=== PATIENT | female | born 1940 | race Caucasian/White ===

== ENCOUNTER 2019-08-08 14:32 | Inpatient (IN) ==
[2019-08-08] MEDS ORDERED: ALBUTEROL 2.5 MG/3 ML NEB RESP TX PRN (16:52)
[2019-08-08] MEDS ORDERED: ONDANSETRON 4 MG/2 ML VIAL IV PRN (16:52)
[2019-08-08] MEDS ORDERED: ACETAMINOPHEN 325 MG TABLET PO PRN (16:52)
[2019-08-08 17:23] LABS: Basophils % 0.1 % (0.0-0.8); Hemoglobin 10.6 GM/DL (12.0-16.0); Immature Granulocytes % 1.5 %; Immature Granulocytes Absolute 0.31 #; Lymphocytes # 0.5 10*3/uL (1.4-4.0); Lymphocytes % 2.6 % (21.3-54.2); Mean Corpuscular HGB Conc 32.1 GM/DL (32-36); Mean Corpuscular Volume 83.1 FL (87-102); Mean Platelet Volume 9.5 FL (9.6-12.0); Monocytes % 9.7 % (1.7-12.7); Neutrophils % 86.1 % (38.7-73.9); Platelet Count 329 T/CUMM (130-400); Red Blood Count 3.97 MC/CUMM (3.8-5.5); Red Cell Distribution Width 15.4 % (9.3-17.3); White Blood Count 20.1 T/CUMM (4-12)
[2019-08-08 17:43] LABS: Albumin 3.1 G/DL (3.4-5.0); Bilirubin,Total 0.6 MG/DL (0.2-1.0); Calcium 8.8 MG/DL (8.5-10.1); Total Protein 7.6 G/DL (6.4-8.3)
[2019-08-08 17:53] LABS: Lymphocytes 2 % (20-55); Segmented Neutrophils 94 % (50-85); Total Cells Counted 100
[2019-08-08 17:54] LABS: Anisocytosis Slight; Microcytosis Slight; Platelet Estimate Normal
[2019-08-08] MEDS ORDERED: MAGNESIUM SULF RIDER 2 GM in PREMIX 1 EACH IV PRN (18:03)
[2019-08-08] MEDS ORDERED: POTASSIUM CHLORIDE 20 MEQ TABLET PO ONE (18:03)
[2019-08-08] MEDS ORDERED: MAGNESIUM SULF RIDER 4 GM in PREMIX 1 EACH IV PRN (18:03)
[2019-08-08] MEDS ORDERED: GLUCAGON 1 MG VIAL IM PRN (18:24)
[2019-08-08] MEDS ORDERED: DEXTROSE 10% 250 ML BAG IV PRN (18:24)
[2019-08-08] MEDS: MEROPENEM 500 MG in SODIUM CHLORIDE 0.9% 100 ML IV SCH (18:40)
[2019-08-08] MEDS: ALBUTEROL/IPRATROPIUM 3 ML NEB RESP TX SCH (20:19)
[2019-08-08] MEDS: INSULIN LISPRO 100 UNIT/ML SUBCUT SCH (20:32)
[2019-08-08] MEDS: NORTRIPTYLINE 25 MG CAPSULE PO SCH (21:47)
[2019-08-08] MEDS: DULoxetine 30 MG CAPSULE PO SCH (21:49)
[2019-08-08] MEDS: MAGNESIUM CHLORIDE 64 MG TABLET PO SCH (21:49)
[2019-08-08 23:23] LABS: Apearance,Urine CLEAR (Clear); Bacteria,Urine Occasional /HPF (Few); Bilirubin,Urine Negative (Negative); Blood, Urine Negative (Negative); Glucose,Urine (UA) Negative (Negative); Ketones,Urine Negative (Negative); Mucus,Urine Occasional /LPF (Occasional); Nitrite,Urine Negative (Negative); Protein,Urine 30 MG/DL; RBC,Urine 1 /HPF (0-4); Squamous Epithelial Cell,Urine Occasional /HPF (0-10); Urine Color Straw (Yellow); Urine Specific Gravity 1.011 (1.001-1.035); Urine Urobilinogen < 2.0 EU/DL (0.2-1.0); WBC,Urine <1 /HPF (0-6)
[2019-08-08] MEDS: VANCOMYCIN INJ 1,500 MG in SODIUM CHLORIDE 0.9% 500 ML IV SCH (23:49)
[2019-08-09] MEDS: ALBUTEROL/IPRATROPIUM 3 ML NEB RESP TX SCH ×7 (00:30→23:05)
[2019-08-09] MEDS: MEROPENEM 500 MG in SODIUM CHLORIDE 0.9% 100 ML IV SCH ×4 (03:09→20:47)
[2019-08-09 04:29] LABS: Basophils % 0.1 % (0.0-0.8); Hematocrit 31.4 VOL% (35.7-47.0); Immature Granulocytes % 1.5 %; Immature Granulocytes Absolute 0.33 #; Lymphocytes # 1.1 10*3/uL (1.4-4.0); Mean Corpuscular HGB Conc 31.8 GM/DL (32-36); Mean Corpuscular Volume 84.4 FL (87-102); Mean Platelet Volume 9.7 FL (9.6-12.0); Monocytes % 14.3 % (1.7-12.7); Neutrophils % 79.1 % (38.7-73.9); Platelet Count 320 T/CUMM (130-400); Red Blood Count 3.72 MC/CUMM (3.8-5.5); Red Cell Distribution Width 15.4 % (9.3-17.3); White Blood Count 22.4 T/CUMM (4-12)
[2019-08-09 04:53] LABS: Band Neutrophils 2 % (0-10); Lymphocytes 6 % (20-55); Platelet Estimate Normal; Segmented Neutrophils 79 % (50-85); Total Cells Counted 100
[2019-08-09 05:03] LABS: Albumin 2.7 G/DL (3.4-5.0); Bilirubin,Total 0.7 MG/DL (0.2-1.0); Calcium 8.3 MG/DL (8.5-10.1); Osmolality,Calculated 281.5 MOS/KG (273-304); Thyroid Stimulating Hormone 0.464 uIU/ml (0.358-3.74); Total Protein 6.7 G/DL (6.4-8.3)
[2019-08-09] MEDS: MAGNESIUM CHLORIDE 64 MG TABLET PO SCH ×2 (08:41→20:45)
[2019-08-09] MEDS: POTASSIUM CHLORIDE 20 MEQ TABLET PO SCH (08:42)
[2019-08-09] MEDS: ATORVASTATIN 10 MG TABLET PO SCH (08:42)
[2019-08-09] MEDS: amLODIPine 10 MG TABLET PO SCH (08:43)
[2019-08-09] MEDS: methylPREDNISolone SOD SUC 40 MG/1 ML VIAL IV SCH ×3 (08:44→20:45)
[2019-08-09] MEDS: FUROSEMIDE 40 MG/4 ML VIAL IV SCH (08:46)
[2019-08-09] MEDS: INSULIN LISPRO 100 UNIT/ML SUBCUT SCH ×4 (08:53→20:47)
[2019-08-09] MEDS ORDERED: Vitamin E 100 UNIT PO SCH (09:00)
[2019-08-09] MEDS ORDERED: FUROSEMIDE 40 MG TABLET PO SCH (09:00)
[2019-08-09] MEDS ORDERED: POTASSIUM CHLORIDE 20 MEQ TABLET PO PRN (09:00)
[2019-08-09] MEDS: POTASSIUM CHLORIDE 20 MEQ TABLET PO PRN (11:29)
[2019-08-09] MEDS: VANCOMYCIN INJ 1,500 MG in SODIUM CHLORIDE 0.9% 500 ML IV SCH ×2 (11:29→23:47)
[2019-08-09] MEDS: DULoxetine 30 MG CAPSULE PO SCH (20:44)
[2019-08-09] MEDS: NORTRIPTYLINE 25 MG CAPSULE PO SCH (20:44)
[2019-08-09] MEDS: ENOXAPARIN 40 MG/0.4 ML SYRINGE SUBCUT SCH (20:48)
[2019-08-10] MEDS: methylPREDNISolone SOD SUC 40 MG/1 ML VIAL IV SCH ×4 (02:29→19:36)
[2019-08-10] MEDS: MEROPENEM 500 MG in SODIUM CHLORIDE 0.9% 100 ML IV SCH ×4 (02:33→20:02)
[2019-08-10] MEDS: ALBUTEROL/IPRATROPIUM 3 ML NEB RESP TX SCH ×6 (03:17→22:59)
[2019-08-10] MEDS: MORPHINE 4 MG/1 ML VIAL IV PRN ×3 (03:35→13:12)
[2019-08-10 04:22] LABS: Basophils % 0.2 % (0.0-0.8); Hematocrit 33.2 VOL% (35.7-47.0); Hemoglobin 10.7 GM/DL (12.0-16.0); Immature Granulocytes % 1.4 %; Immature Granulocytes Absolute 0.31 #; Lymphocytes # 0.7 10*3/uL (1.4-4.0); Lymphocytes % 3.2 % (21.3-54.2); Mean Corpuscular HGB Conc 32.2 GM/DL (32-36); Mean Corpuscular Volume 83.2 FL (87-102); Mean Platelet Volume 9.8 FL (9.6-12.0); Monocytes % 6.7 % (1.7-12.7); Neutrophils % 88.5 % (38.7-73.9); Platelet Count 307 T/CUMM (130-400); Red Blood Count 3.99 MC/CUMM (3.8-5.5); Red Cell Distribution Width 15.3 % (9.3-17.3); White Blood Count 22.6 T/CUMM (4-12)
[2019-08-10 04:39] LABS: Albumin 2.6 G/DL (3.4-5.0); Calcium 8.2 MG/DL (8.5-10.1); Osmolality,Calculated 272.1 MOS/KG (273-304); Total Protein 7.2 G/DL (6.4-8.3)
[2019-08-10 04:44] LABS: Band Neutrophils 1 % (0-10); Lymphocytes 1 % (20-55); Segmented Neutrophils 88 % (50-85); Total Cells Counted 100
[2019-08-10 04:45] LABS: Hypochromasia 1+; Platelet Estimate Adequate
[2019-08-10] MEDS: POTASSIUM CHLORIDE 20 MEQ TABLET PO SCH (08:22)
[2019-08-10] MEDS: ATORVASTATIN 10 MG TABLET PO SCH (08:24)
[2019-08-10] MEDS: amLODIPine 10 MG TABLET PO SCH (08:24)
[2019-08-10] MEDS: FUROSEMIDE 40 MG/4 ML VIAL IV SCH (08:24)
[2019-08-10] MEDS: MAGNESIUM CHLORIDE 64 MG TABLET PO SCH ×2 (08:24→20:01)
[2019-08-10] MEDS: INSULIN LISPRO 100 UNIT/ML SUBCUT SCH ×4 (09:07→20:01)
[2019-08-10] MEDS ORDERED: MYLANTA/LIDO VISC/NYST 180 ML BOTTLE SWISH/SWAL PRN (10:01)
[2019-08-10] MEDS: VANCOMYCIN INJ 1,500 MG in SODIUM CHLORIDE 0.9% 500 ML IV SCH ×2 (13:14→23:17)
[2019-08-10] MEDS: MYLANTA/LIDO VISC/NYST 180 ML BOTTLE SWISH/SWAL SCH ×2 (18:00→20:05)
[2019-08-10] MEDS: ENOXAPARIN 40 MG/0.4 ML SYRINGE SUBCUT SCH (19:36)
[2019-08-10] MEDS: NORTRIPTYLINE 25 MG CAPSULE PO SCH (20:01)
[2019-08-10] MEDS: DULoxetine 30 MG CAPSULE PO SCH (20:01)
[2019-08-11] MEDS: MORPHINE 4 MG/1 ML VIAL IV PRN (00:02)
[2019-08-11] MEDS: MEROPENEM 500 MG in SODIUM CHLORIDE 0.9% 100 ML IV SCH ×4 (02:04→21:02)
[2019-08-11] MEDS: methylPREDNISolone SOD SUC 40 MG/1 ML VIAL IV SCH ×4 (02:04→21:02)
[2019-08-11] MEDS: ALBUTEROL/IPRATROPIUM 3 ML NEB RESP TX SCH ×6 (02:33→23:17)
[2019-08-11 04:48] LABS: Basophils % 0.1 % (0.0-0.8); Hematocrit 33.9 VOL% (35.7-47.0); Hemoglobin 10.8 GM/DL (12.0-16.0); Immature Granulocytes % 0.9 %; Immature Granulocytes Absolute 0.22 #; Lymphocytes # 0.6 10*3/uL (1.4-4.0); Lymphocytes % 2.5 % (21.3-54.2); Mean Corpuscular HGB Conc 31.9 GM/DL (32-36); Mean Corpuscular Volume 84.1 FL (87-102); Mean Platelet Volume 9.9 FL (9.6-12.0); Monocytes % 5.2 % (1.7-12.7); Neutrophils % 91.3 % (38.7-73.9); Platelet Count 329 T/CUMM (130-400); Red Blood Count 4.03 MC/CUMM (3.8-5.5); Red Cell Distribution Width 15.3 % (9.3-17.3); White Blood Count 24.4 T/CUMM (4-12)
[2019-08-11 05:03] LABS: Calcium 8.2 MG/DL (8.5-10.1); Osmolality,Calculated 282.1 MOS/KG (273-304)
[2019-08-11 05:06] LABS: Hypochromasia 1+; Lymphocytes 1 % (20-55); Platelet Estimate Adequate; Segmented Neutrophils 95 % (50-85); Total Cells Counted 100
[2019-08-11] MEDS: POTASSIUM CHLORIDE 20 MEQ TABLET PO PRN (05:20)
[2019-08-11] MEDS ORDERED: MEPERIDINE 50 MG/1 ML VIAL IM ONE (07:00)
[2019-08-11] MEDS ORDERED: MIDAZOLAM 2 MG/2 ML VIAL ONE (07:27)
[2019-08-11] MEDS ORDERED: LIDOCAINE 2% 20 ML VIAL RESP TX ONE (07:30)
[2019-08-11] MEDS ORDERED: LIDOCAINE 1% 20 ML VIAL MISC INJ ONE (07:30)
[2019-08-11] MEDS ORDERED: MIDAZOLAM 2 MG/2 ML VIAL IV ONE ×2 (07:30→08:48)
[2019-08-11] MEDS ORDERED: LIDOCAINE 2% VISCOUS 100 ML BOTTLE SWISH/SPIT ONE (07:30)
[2019-08-11] MEDS ORDERED: ETOMIDATE 20 MG/10 ML VIAL IV ONE ×2 (08:22→08:44)
[2019-08-11] MEDS ORDERED: SUCCINYLCHOLINE 200 MG/10 ML VIAL ONE (08:23)
[2019-08-11] MEDS ORDERED: SUCCINYLCHOLINE 200 MG/10 ML VIAL IV ONE (08:44)
[2019-08-11] MEDS: FUROSEMIDE 40 MG/4 ML VIAL IV SCH (09:03)
[2019-08-11] MEDS: POTASSIUM CHLORIDE 20 MEQ TABLET PO SCH (09:08)
[2019-08-11] MEDS: MYLANTA/LIDO VISC/NYST 180 ML BOTTLE SWISH/SWAL SCH ×4 (09:09→21:07)
[2019-08-11] MEDS: amLODIPine 10 MG TABLET PO SCH (09:09)
[2019-08-11] MEDS: ATORVASTATIN 10 MG TABLET PO SCH (09:09)
[2019-08-11] MEDS: MAGNESIUM CHLORIDE 64 MG TABLET PO SCH ×2 (09:09→21:08)
[2019-08-11] MEDS: fentaNYL INJ 1,250 MCG in SODIUM CHLORIDE 0.9% 225 ML IV PRN ×3 (09:19→23:38)
[2019-08-11] MEDS: INSULIN LISPRO 100 UNIT/ML SUBCUT SCH ×4 (09:26→23:20)
[2019-08-11 09:50] LABS: ABG Base Excess 3.3 MMOL/L (-2.5-2.5); ABG HCO3 27.4 MMOL/L (20-26); ABG Oxygen Saturation 98.9 % (95-100); ABG PCO2 56.4 MM HG (35-48); ABG PH 7.338 (7.35-7.45); ABG TCO2 27.7 MMOL/L (23-27); Allen Test Positive; Pt O2 Delivery Device Ventilator
[2019-08-11] MEDS: VANCOMYCIN INJ 1,500 MG in SODIUM CHLORIDE 0.9% 500 ML IV SCH ×2 (10:53→23:18)
[2019-08-11] MEDS: LACTATED RINGERS 1,000 ML IV SCH (16:16)
[2019-08-11 16:30] LABS: Allen Test Positive; Pt O2 Delivery Device Ventilator
[2019-08-11 16:31] LABS: ABG Base Excess 4.8 MMOL/L (-2.5-2.5); ABG HCO3 31.1 MMOL/L (20-26); ABG Oxygen Saturation 98.4 % (95-100); ABG PCO2 55.5 MM HG (35-48); ABG PH 7.367 (7.35-7.45); ABG PO2 150.1 MM HG (80-95); ABG TCO2 32.9 MMOL/L (23-27)
[2019-08-11] MEDS: ENOXAPARIN 40 MG/0.4 ML SYRINGE SUBCUT SCH (21:01)
[2019-08-11] MEDS: NORTRIPTYLINE 25 MG CAPSULE PO SCH (21:02)
[2019-08-11] MEDS: DULoxetine 30 MG CAPSULE PO SCH (21:02)
[2019-08-12] MEDS: methylPREDNISolone SOD SUC 40 MG/1 ML VIAL IV SCH ×4 (03:02→21:45)
[2019-08-12] MEDS: MEROPENEM 500 MG in SODIUM CHLORIDE 0.9% 100 ML IV SCH ×3 (03:07→16:38)
[2019-08-12] MEDS: ALBUTEROL/IPRATROPIUM 3 ML NEB RESP TX SCH ×5 (03:09→19:30)
[2019-08-12 04:57] LABS: ABG Base Excess 2.9 MMOL/L (-2.5-2.5); ABG HCO3 26.9 MMOL/L (20-26); ABG Oxygen Saturation 94.4 % (95-100); ABG PCO2 64.6 MM HG (35-48); ABG PH 7.294 (7.35-7.45); ABG PO2 79.2 MM HG (80-95); ABG TCO2 28.3 MMOL/L (23-27); Allen Test Positive; Pt O2 Delivery Device Ventilator
[2019-08-12] MEDS: INSULIN LISPRO 100 UNIT/ML SUBCUT SCH ×3 (05:17→17:16)
[2019-08-12] MEDS: LACTATED RINGERS 1,000 ML IV SCH ×2 (05:18→16:39)
[2019-08-12] MEDS: fentaNYL INJ 1,250 MCG in SODIUM CHLORIDE 0.9% 225 ML IV PRN ×3 (05:23→18:49)
[2019-08-12 06:25] LABS: Basophils # 0.1 10*3/uL (0.0-0.2); Basophils % 0.2 % (0.0-0.8); Hematocrit 31.5 VOL% (35.7-47.0); Hemoglobin 9.5 GM/DL (12.0-16.0); Immature Granulocytes % 1.2 %; Immature Granulocytes Absolute 0.32 #; Lymphocytes # 0.5 10*3/uL (1.4-4.0); Lymphocytes % 1.7 % (21.3-54.2); Mean Corpuscular HGB Conc 30.2 GM/DL (32-36); Mean Platelet Volume 10.3 FL (9.6-12.0); Monocytes % 6.9 % (1.7-12.7); Platelet Count 325 T/CUMM (130-400); Red Blood Count 3.58 MC/CUMM (3.8-5.5); Red Cell Distribution Width 15.6 % (9.3-17.3); White Blood Count 27.3 T/CUMM (4-12)
[2019-08-12 06:55] LABS: Calcium 8.1 MG/DL (8.5-10.1); Osmolality,Calculated 295.7 MOS/KG (273-304)
[2019-08-12 06:58] LABS: Prealbumin 11.9 MG/DL (20-40)
[2019-08-12] MEDS: MAGNESIUM CHLORIDE 64 MG TABLET PO SCH ×2 (08:55→21:43)
[2019-08-12] MEDS: ATORVASTATIN 10 MG TABLET PO SCH (08:55)
[2019-08-12] MEDS: MYLANTA/LIDO VISC/NYST 180 ML BOTTLE SWISH/SWAL SCH ×4 (08:55→21:43)
[2019-08-12] MEDS: POTASSIUM CHLORIDE 20 MEQ TABLET PO SCH (08:55)
[2019-08-12] MEDS: amLODIPine 10 MG TABLET PO SCH (08:55)
[2019-08-12] MEDS: FLUCONAZOLE INJ 400 MG in PREMIX 1 EACH IV SCH (09:12)
[2019-08-12] MEDS: MULTIVITAMIN LIQUID (CENTRUM) 60 ML BOTTLE PO SCH (09:13)
[2019-08-12 10:00] LABS: Hypochromasia 2+; Microcytosis Slight; Platelet Estimate Normal; Segmented Neutrophils 92 % (50-85); Total Cells Counted 100
[2019-08-12] MEDS ORDERED: LACTATED RINGERS 1,000 ML IV ONE (10:57)
[2019-08-12] MEDS ORDERED: VECURONIUM 10 MG VIAL IV ONE ×2 (11:16→11:23)
[2019-08-12] MEDS ORDERED: CISATRACURIUM 10 MG/5 ML VIAL IV ONE (11:23)
[2019-08-12] MEDS: VANCOMYCIN INJ 1,500 MG in SODIUM CHLORIDE 0.9% 500 ML IV SCH (12:19)
[2019-08-12] MEDS: CISATRACURIUM 200 MG in SODIUM CHLORIDE 0.9% 180 ML IV SCH (12:22)
[2019-08-12 12:39] LABS: ABG Base Excess 2.6 MMOL/L (-2.5-2.5); ABG HCO3 26.7 MMOL/L (20-26); ABG Oxygen Saturation 99.1 % (95-100); ABG TCO2 30.8 MMOL/L (23-27); Allen Test Positive; Pt O2 Delivery Device Ventilator
[2019-08-12 12:40] LABS: ABG PH 7.207 (7.35-7.45)
[2019-08-12 12:41] LABS: ABG PCO2 82.5 MM HG (35-48)
[2019-08-12 14:42] LABS: Allen Test Positive; Pt O2 Delivery Device Ventilator
[2019-08-12 14:43] LABS: ABG Base Excess 0.2 MMOL/L (-2.5-2.5); ABG HCO3 24.6 MMOL/L (20-26); ABG Oxygen Saturation 99.3 % (95-100); ABG TCO2 30.9 MMOL/L (23-27)
[2019-08-12 14:45] LABS: ABG PCO2 98.5 MM HG (35-48); ABG PH 7.129 (7.35-7.45)
[2019-08-12] MEDS ORDERED: FUROSEMIDE 40 MG/4 ML VIAL IV ONE (15:01)
[2019-08-12 16:13] LABS: ABG Base Excess 1.4 MMOL/L (-2.5-2.5); ABG HCO3 25.7 MMOL/L (20-26); ABG Oxygen Saturation 99.5 % (95-100); Allen Test Positive; Pt O2 Delivery Device Ventilator
[2019-08-12 16:16] LABS: ABG PH 7.189 (7.35-7.45)
[2019-08-12] MEDS: ENOXAPARIN 40 MG/0.4 ML SYRINGE SUBCUT SCH (21:41)
[2019-08-12] MEDS: DULoxetine 30 MG CAPSULE PO SCH (21:42)
[2019-08-12] MEDS: NORTRIPTYLINE 25 MG CAPSULE PO SCH (21:43)
[2019-08-13] MEDS: MEROPENEM 500 MG in SODIUM CHLORIDE 0.9% 100 ML IV SCH ×3 (00:55→16:47)
[2019-08-13] MEDS: INSULIN LISPRO 100 UNIT/ML SUBCUT SCH ×4 (00:55→18:19)
[2019-08-13] MEDS: fentaNYL INJ 1,250 MCG in SODIUM CHLORIDE 0.9% 225 ML IV PRN ×4 (00:59→19:52)
[2019-08-13] MEDS: methylPREDNISolone SOD SUC 40 MG/1 ML VIAL IV SCH ×4 (02:58→18:37)
[2019-08-13] MEDS: ALBUTEROL/IPRATROPIUM 3 ML NEB RESP TX SCH ×7 (03:19→23:46)
[2019-08-13 04:06] LABS: ABG Base Excess 4.2 MMOL/L (-2.5-2.5); ABG HCO3 33.4 MMOL/L (20-26); ABG Oxygen Saturation 98.8 % (95-100); ABG PH 7.273 (7.35-7.45); ABG PO2 164.8 MM HG (80-95); ABG TCO2 35.7 MMOL/L (23-27); Allen Test Positive; Pt O2 Delivery Device Ventilator
[2019-08-13 04:08] LABS: ABG PCO2 73.9 MM HG (35-48)
[2019-08-13 05:58] LABS: Basophils % 0.1 % (0.0-0.8); Hematocrit 30.4 VOL% (35.7-47.0); Hemoglobin 9.1 GM/DL (12.0-16.0); Immature Granulocytes % 1.7 %; Immature Granulocytes Absolute 0.28 #; Lymphocytes # 0.5 10*3/uL (1.4-4.0); Lymphocytes % 2.9 % (21.3-54.2); Mean Corpuscular HGB Conc 29.9 GM/DL (32-36); Mean Corpuscular Volume 89.9 FL (87-102); Mean Platelet Volume 10.2 FL (9.6-12.0); Monocytes % 6.4 % (1.7-12.7); Neutrophils % 88.9 % (38.7-73.9); Platelet Count 259 T/CUMM (130-400); Red Blood Count 3.38 MC/CUMM (3.8-5.5); Red Cell Distribution Width 15.2 % (9.3-17.3); White Blood Count 16.8 T/CUMM (4-12)
[2019-08-13 06:30] LABS: Calcium 8.1 MG/DL (8.5-10.1); Osmolality,Calculated 302.1 MOS/KG (273-304)
[2019-08-13 06:50] LABS: Hypochromasia 2+; Lymphocytes 2 % (20-55); Segmented Neutrophils 98 % (50-85); Total Cells Counted 100
[2019-08-13 06:51] LABS: Platelet Estimate Normal; Polychromasia Slight; Spherocytes Few
[2019-08-13] MEDS: LACTATED RINGERS 1,000 ML IV SCH ×4 (07:07→22:10)
[2019-08-13] MEDS: MAGNESIUM CHLORIDE 64 MG TABLET PO SCH ×2 (09:00→21:27)
[2019-08-13] MEDS: MULTIVITAMIN LIQUID (CENTRUM) 60 ML BOTTLE PO SCH (09:00)
[2019-08-13] MEDS: ATORVASTATIN 10 MG TABLET PO SCH (09:00)
[2019-08-13] MEDS: PANTOPRAZOLE 40 MG VIAL IV SCH (09:00)
[2019-08-13] MEDS: POTASSIUM CHLORIDE 20 MEQ TABLET PO SCH (09:00)
[2019-08-13] MEDS: amLODIPine 10 MG TABLET PO SCH (09:00)
[2019-08-13] MEDS: MYLANTA/LIDO VISC/NYST 180 ML BOTTLE SWISH/SWAL SCH ×4 (09:01→21:27)
[2019-08-13] MEDS: FLUCONAZOLE INJ 400 MG in PREMIX 1 EACH IV SCH (09:05)
[2019-08-13] MEDS: CISATRACURIUM 200 MG in SODIUM CHLORIDE 0.9% 180 ML IV SCH ×2 (10:00→12:20)
[2019-08-13] MEDS: DULoxetine 30 MG CAPSULE PO SCH (21:27)
[2019-08-13] MEDS: ENOXAPARIN 40 MG/0.4 ML SYRINGE SUBCUT SCH (21:27)
[2019-08-13] MEDS: NORTRIPTYLINE 25 MG CAPSULE PO SCH (21:27)
[2019-08-13] MEDS: VANCOMYCIN INJ 1,750 MG in SODIUM CHLORIDE 0.9% 500 ML IV SCH (22:03)
[2019-08-14] MEDS: INSULIN LISPRO 100 UNIT/ML SUBCUT SCH ×4 (01:16→17:55)
[2019-08-14] MEDS: MEROPENEM 500 MG in SODIUM CHLORIDE 0.9% 100 ML IV SCH ×3 (01:30→16:30)
[2019-08-14] MEDS: fentaNYL INJ 1,250 MCG in SODIUM CHLORIDE 0.9% 225 ML IV PRN ×4 (01:32→21:43)
[2019-08-14] MEDS: methylPREDNISolone SOD SUC 40 MG/1 ML VIAL IV SCH ×4 (01:36→21:39)
[2019-08-14 04:13] LABS: ABG Base Excess 4.3 MMOL/L (-2.5-2.5); ABG HCO3 28.2 MMOL/L (20-26); ABG Oxygen Saturation 95.7 % (95-100); ABG PCO2 67.7 MM HG (35-48); ABG PH 7.291 (7.35-7.45); ABG TCO2 30.2 MMOL/L (23-27)
[2019-08-14] MEDS: ALBUTEROL/IPRATROPIUM 3 ML NEB RESP TX SCH ×6 (04:45→23:07)
[2019-08-14 05:36] LABS: Basophils % 0.1 % (0.0-0.8); Hematocrit 30.7 VOL% (35.7-47.0); Hemoglobin 9.4 GM/DL (12.0-16.0); Immature Granulocytes % 1.4 %; Lymphocytes # 0.2 10*3/uL (1.4-4.0); Lymphocytes % 1.7 % (21.3-54.2); Mean Corpuscular HGB Conc 30.6 GM/DL (32-36); Mean Corpuscular Volume 89.2 FL (87-102); Mean Platelet Volume 10.5 FL (9.6-12.0); Monocytes % 7.6 % (1.7-12.7); Neutrophils % 89.2 % (38.7-73.9); Platelet Count 260 T/CUMM (130-400); Red Blood Count 3.44 MC/CUMM (3.8-5.5); Red Cell Distribution Width 15.4 % (9.3-17.3); White Blood Count 14.5 T/CUMM (4-12)
[2019-08-14 06:27] LABS: Calcium 8.3 MG/DL (8.5-10.1)
[2019-08-14 06:35] LABS: Band Neutrophils 1 % (0-10); Hypochromasia 1+; Lymphocytes 1 % (20-55); Segmented Neutrophils 95 % (50-85); Total Cells Counted 100
[2019-08-14 06:36] LABS: Microcytosis 1+; Platelet Estimate Normal
[2019-08-14] MEDS: LACTATED RINGERS 1,000 ML IV SCH ×2 (07:37→16:00)
[2019-08-14] MEDS: FLUCONAZOLE INJ 400 MG in PREMIX 1 EACH IV SCH (09:25)
[2019-08-14] MEDS: ATORVASTATIN 10 MG TABLET PO SCH (09:30)
[2019-08-14] MEDS: MAGNESIUM CHLORIDE 64 MG TABLET PO SCH ×2 (09:30→21:46)
[2019-08-14] MEDS: CISATRACURIUM 200 MG in SODIUM CHLORIDE 0.9% 180 ML IV SCH ×2 (09:30→12:50)
[2019-08-14] MEDS: POTASSIUM CHLORIDE 20 MEQ TABLET PO SCH (09:30)
[2019-08-14] MEDS: amLODIPine 10 MG TABLET PO SCH (09:30)
[2019-08-14] MEDS: MULTIVITAMIN LIQUID (CENTRUM) 60 ML BOTTLE PO SCH (09:38)
[2019-08-14] MEDS: PANTOPRAZOLE 40 MG VIAL IV SCH (09:45)
[2019-08-14] MEDS: ENOXAPARIN 40 MG/0.4 ML SYRINGE SUBCUT SCH (21:41)
[2019-08-14] MEDS: DULoxetine 30 MG CAPSULE PO SCH (21:45)
[2019-08-14] MEDS: NORTRIPTYLINE 25 MG CAPSULE PO SCH (21:46)
[2019-08-14] MEDS: VANCOMYCIN INJ 1,750 MG in SODIUM CHLORIDE 0.9% 500 ML IV SCH (21:52)
[2019-08-15] MEDS: INSULIN LISPRO 100 UNIT/ML SUBCUT SCH ×4 (01:28→18:05)
[2019-08-15] MEDS: MEROPENEM 500 MG in SODIUM CHLORIDE 0.9% 100 ML IV SCH ×3 (01:56→16:55)
[2019-08-15] MEDS: methylPREDNISolone SOD SUC 40 MG/1 ML VIAL IV SCH ×4 (01:57→22:20)
[2019-08-15] MEDS: ALBUTEROL/IPRATROPIUM 3 ML NEB RESP TX SCH ×6 (03:49→23:03)
[2019-08-15 03:58] LABS: ABG Base Excess 5.5 MMOL/L (-2.5-2.5); ABG HCO3 29.4 MMOL/L (20-26); ABG PCO2 65.3 MM HG (35-48); ABG PH 7.316 (7.35-7.45); ABG TCO2 30.8 MMOL/L (23-27); Allen Test Positive; Pt O2 Delivery Device Ventilator
[2019-08-15] MEDS: fentaNYL INJ 1,250 MCG in SODIUM CHLORIDE 0.9% 225 ML IV PRN ×3 (04:02→19:37)
[2019-08-15] MEDS: LACTATED RINGERS 1,000 ML IV SCH (04:58)
[2019-08-15 05:39] LABS: Basophils % 0.2 % (0.0-0.8); Hematocrit 32.6 VOL% (35.7-47.0); Hemoglobin 9.8 GM/DL (12.0-16.0); Immature Granulocytes % 1.7 %; Immature Granulocytes Absolute 0.22 #; Lymphocytes # 0.4 10*3/uL (1.4-4.0); Lymphocytes % 2.8 % (21.3-54.2); Mean Corpuscular HGB Conc 30.1 GM/DL (32-36); Mean Corpuscular Volume 89.3 FL (87-102); Mean Platelet Volume 10.4 FL (9.6-12.0); Monocytes % 6.8 % (1.7-12.7); Neutrophils % 88.5 % (38.7-73.9); Platelet Count 255 T/CUMM (130-400); Red Blood Count 3.65 MC/CUMM (3.8-5.5); Red Cell Distribution Width 15.5 % (9.3-17.3); White Blood Count 13.3 T/CUMM (4-12)
[2019-08-15 06:11] LABS: Albumin 1.9 G/DL (3.4-5.0); Bilirubin,Total 0.7 MG/DL (0.2-1.0); Calcium 8.3 MG/DL (8.5-10.1); Osmolality,Calculated 307.6 MOS/KG (273-304); Total Protein 5.6 G/DL (6.4-8.3)
[2019-08-15 06:12] LABS: Hypochromasia 1+; Lymphocytes 3 % (20-55); Microcytosis Slight; Platelet Estimate Normal; Segmented Neutrophils 92 % (50-85); Total Cells Counted 100
[2019-08-15] MEDS: INSULIN GLARGINE 100 UNIT/ML SUBCUT SCH (08:35)
[2019-08-15] MEDS: FUROSEMIDE 40 MG/4 ML VIAL IV SCH (08:35)
[2019-08-15] MEDS: PANTOPRAZOLE 40 MG VIAL IV SCH (08:40)
[2019-08-15] MEDS: MULTIVITAMIN LIQUID (CENTRUM) 60 ML BOTTLE PO SCH (08:45)
[2019-08-15] MEDS: amLODIPine 10 MG TABLET PO SCH (08:50)
[2019-08-15] MEDS: ATORVASTATIN 10 MG TABLET PO SCH (08:50)
[2019-08-15] MEDS: FLUCONAZOLE INJ 400 MG in PREMIX 1 EACH IV SCH (09:00)
[2019-08-15] MEDS ORDERED: MAGNESIUM OXIDE 400 MG TABLET PO SCH (09:00)
[2019-08-15] MEDS ORDERED: POTASSIUM CHLORIDE 20 MEQ/15 ML UDCUP NG SCH (09:00)
[2019-08-15] MEDS: CISATRACURIUM 200 MG in SODIUM CHLORIDE 0.9% 180 ML IV SCH ×2 (12:00→16:55)
[2019-08-15] MEDS: ENOXAPARIN 40 MG/0.4 ML SYRINGE SUBCUT SCH (22:20)
[2019-08-15] MEDS: NORTRIPTYLINE 25 MG CAPSULE PO SCH (22:25)
[2019-08-15] MEDS: DULoxetine 30 MG CAPSULE PO SCH (22:25)
[2019-08-15] MEDS: VANCOMYCIN INJ 1,750 MG in SODIUM CHLORIDE 0.9% 500 ML IV SCH (22:50)
[2019-08-16] MEDS: INSULIN LISPRO 100 UNIT/ML SUBCUT SCH ×5 (00:33→23:50)
[2019-08-16] MEDS: MEROPENEM 500 MG in SODIUM CHLORIDE 0.9% 100 ML IV SCH ×3 (01:44→16:32)
[2019-08-16] MEDS: methylPREDNISolone SOD SUC 40 MG/1 ML VIAL IV SCH ×4 (02:01→22:34)
[2019-08-16] MEDS: ALBUTEROL/IPRATROPIUM 3 ML NEB RESP TX SCH ×6 (03:17→23:40)
[2019-08-16 03:23] LABS: ABG Base Excess 5.8 MMOL/L (-2.5-2.5); ABG HCO3 29.7 MMOL/L (20-26); ABG Oxygen Saturation 97.1 % (95-100); ABG PCO2 67.3 MM HG (35-48); ABG PH 7.314 (7.35-7.45); ABG PO2 96.1 MM HG (80-95); ABG TCO2 31.1 MMOL/L (23-27); Allen Test Positive; Pt O2 Delivery Device Ventilator
[2019-08-16 06:00] LABS: Basophils % 0.1 % (0.0-0.8); Hematocrit 34.3 VOL% (35.7-47.0); Hemoglobin 10.2 GM/DL (12.0-16.0); Immature Granulocytes % 1.4 %; Immature Granulocytes Absolute 0.29 #; Lymphocytes # 0.2 10*3/uL (1.4-4.0); Lymphocytes % 1.1 % (21.3-54.2); Mean Corpuscular HGB Conc 29.7 GM/DL (32-36); Mean Corpuscular Volume 89.6 FL (87-102); Mean Platelet Volume 10.4 FL (9.6-12.0); Neutrophils % 89.4 % (38.7-73.9); Platelet Count 302 T/CUMM (130-400); Red Blood Count 3.83 MC/CUMM (3.8-5.5); Red Cell Distribution Width 15.7 % (9.3-17.3); White Blood Count 20.9 T/CUMM (4-12)
[2019-08-16 06:08] LABS: Anisocytosis 1+; Eosinophils 2 % (0-10); Lymphocytes 6 % (20-55); Platelet Estimate Adequate; Segmented Neutrophils 88 % (50-85); Total Cells Counted 100
[2019-08-16 06:11] LABS: Bilirubin,Total 1.4 MG/DL (0.2-1.0); Calcium 8.5 MG/DL (8.5-10.1); Osmolality,Calculated 312.1 MOS/KG (273-304); Total Protein 5.4 G/DL (6.4-8.3)
[2019-08-16] MEDS ORDERED: FUROSEMIDE 20 MG/2 ML VIAL ONE (08:43)
[2019-08-16] MEDS: fentaNYL INJ 1,250 MCG in SODIUM CHLORIDE 0.9% 225 ML IV PRN ×2 (08:50→16:31)
[2019-08-16] MEDS: ATORVASTATIN 10 MG TABLET PO SCH (08:50)
[2019-08-16] MEDS: amLODIPine 10 MG TABLET PO SCH (08:50)
[2019-08-16] MEDS: INSULIN GLARGINE 100 UNIT/ML SUBCUT SCH (08:52)
[2019-08-16] MEDS: PANTOPRAZOLE 40 MG VIAL IV SCH (08:53)
[2019-08-16] MEDS: FUROSEMIDE 40 MG/4 ML VIAL IV SCH (09:05)
[2019-08-16] MEDS: MULTIVITAMIN LIQUID (CENTRUM) 60 ML BOTTLE PO SCH (09:15)
[2019-08-16] MEDS: FLUCONAZOLE INJ 400 MG in PREMIX 1 EACH IV SCH (10:43)
[2019-08-16] MEDS: SODIUM CHLORIDE 0.45% 1,000 ML IV SCH (11:30)
[2019-08-16] MEDS ORDERED: BISACODYL 10 MG SUPP RECTAL ONE ×2 (11:58→11:59)
[2019-08-16] MEDS ORDERED: BISACODYL 10 MG SUPP RECTAL PRN (11:58)
[2019-08-16] MEDS: LORazepam 1 MG TABLET PO SCH ×2 (13:38→18:39)
[2019-08-16] MEDS: CISATRACURIUM 200 MG in SODIUM CHLORIDE 0.9% 180 ML IV SCH (14:01)
[2019-08-16] MEDS: DULoxetine 30 MG CAPSULE PO SCH (20:23)
[2019-08-16] MEDS: NORTRIPTYLINE 25 MG CAPSULE PO SCH (20:23)
[2019-08-16] MEDS: ENOXAPARIN 40 MG/0.4 ML SYRINGE SUBCUT SCH (20:23)
[2019-08-17] MEDS: LORazepam 1 MG TABLET PO SCH ×4 (00:50→18:51)
[2019-08-17] MEDS: SODIUM CHLORIDE 0.45% 1,000 ML IV SCH ×2 (00:54→13:38)
[2019-08-17] MEDS: MEROPENEM 500 MG in SODIUM CHLORIDE 0.9% 100 ML IV SCH (02:32)
[2019-08-17] MEDS: ALBUTEROL/IPRATROPIUM 3 ML NEB RESP TX SCH ×5 (02:55→19:22)
[2019-08-17] MEDS: methylPREDNISolone SOD SUC 40 MG/1 ML VIAL IV SCH ×3 (05:12→16:36)
[2019-08-17 05:58] LABS: ABG Base Excess 8.1 MMOL/L (-2.5-2.5); ABG HCO3 31.9 MMOL/L (20-26); ABG Oxygen Saturation 98.5 % (95-100); ABG PCO2 64.4 MM HG (35-48); ABG PH 7.352 (7.35-7.45); ABG TCO2 32.7 MMOL/L (23-27); Allen Test Positive; Pt O2 Delivery Device Ventilator
[2019-08-17 06:11] LABS: Basophils % 0.1 % (0.0-0.8); Hematocrit 32.5 VOL% (35.7-47.0); Hemoglobin 9.5 GM/DL (12.0-16.0); Immature Granulocytes % 1.7 %; Immature Granulocytes Absolute 0.32 #; Lymphocytes # 0.3 10*3/uL (1.4-4.0); Lymphocytes % 1.6 % (21.3-54.2); Mean Corpuscular HGB Conc 29.2 GM/DL (32-36); Mean Corpuscular Volume 88.8 FL (87-102); Mean Platelet Volume 10.8 FL (9.6-12.0); Monocytes % 5.4 % (1.7-12.7); Neutrophils % 91.2 % (38.7-73.9); Platelet Count 273 T/CUMM (130-400); Red Blood Count 3.66 MC/CUMM (3.8-5.5); Red Cell Distribution Width 15.8 % (9.3-17.3); White Blood Count 19.1 T/CUMM (4-12)
[2019-08-17] MEDS: INSULIN LISPRO 100 UNIT/ML SUBCUT SCH ×3 (06:35→18:19)
[2019-08-17 06:38] LABS: Hypochromasia 1+; Lymphocytes 2 % (20-55); Platelet Estimate Adequate; Segmented Neutrophils 95 % (50-85); Total Cells Counted 100
[2019-08-17 06:39] LABS: Microcytosis Slight
[2019-08-17 06:49] LABS: Albumin 1.9 G/DL (3.4-5.0); Bilirubin,Total 0.7 MG/DL (0.2-1.0); Calcium 8.3 MG/DL (8.5-10.1); Osmolality,Calculated 307.6 MOS/KG (273-304); Total Protein 5.5 G/DL (6.4-8.3)
[2019-08-17 06:52] LABS: Prealbumin 22.3 MG/DL (20-40)
[2019-08-17] MEDS: amLODIPine 10 MG TABLET PO SCH (09:04)
[2019-08-17] MEDS: ATORVASTATIN 10 MG TABLET PO SCH (09:04)
[2019-08-17] MEDS: MULTIVITAMIN LIQUID (CENTRUM) 60 ML BOTTLE PO SCH (09:09)
[2019-08-17] MEDS: INSULIN GLARGINE 100 UNIT/ML SUBCUT SCH (09:13)
[2019-08-17] MEDS: FUROSEMIDE 40 MG/4 ML VIAL IV SCH (09:14)
[2019-08-17] MEDS: PANTOPRAZOLE 40 MG VIAL IV SCH (09:16)
[2019-08-17] MEDS: FLUCONAZOLE INJ 400 MG in PREMIX 1 EACH IV SCH (09:20)
[2019-08-17] MEDS: CISATRACURIUM 200 MG in SODIUM CHLORIDE 0.9% 180 ML IV SCH (13:55)
[2019-08-17] MEDS: DULoxetine 30 MG CAPSULE PO SCH (20:41)
[2019-08-17] MEDS: NORTRIPTYLINE 25 MG CAPSULE PO SCH (20:41)
[2019-08-17] MEDS: ENOXAPARIN 40 MG/0.4 ML SYRINGE SUBCUT SCH (20:41)
[2019-08-18] MEDS: methylPREDNISolone SOD SUC 40 MG/1 ML VIAL IV SCH ×5 (00:15→23:51)
[2019-08-18] MEDS: INSULIN LISPRO 100 UNIT/ML SUBCUT SCH ×5 (00:17→23:51)
[2019-08-18] MEDS: LORazepam 1 MG TABLET PO SCH ×5 (00:17→23:51)
[2019-08-18] MEDS: ALBUTEROL/IPRATROPIUM 3 ML NEB RESP TX SCH ×6 (00:47→19:22)
[2019-08-18] MEDS: SODIUM CHLORIDE 0.45% 1,000 ML IV SCH ×2 (03:00→16:56)
[2019-08-18 03:29] LABS: Basophils % 0.2 % (0.0-0.8); Hematocrit 31.7 VOL% (35.7-47.0); Hemoglobin 9.5 GM/DL (12.0-16.0); Immature Granulocytes % 1.5 %; Immature Granulocytes Absolute 0.27 #; Lymphocytes # 0.5 10*3/uL (1.4-4.0); Lymphocytes % 2.9 % (21.3-54.2); Mean Platelet Volume 10.5 FL (9.6-12.0); Monocytes % 8.9 % (1.7-12.7); Neutrophils % 86.5 % (38.7-73.9); Platelet Count 230 T/CUMM (130-400); Red Blood Count 3.56 MC/CUMM (3.8-5.5); Red Cell Distribution Width 15.6 % (9.3-17.3); White Blood Count 18.2 T/CUMM (4-12)
[2019-08-18 03:45] LABS: Osmolality,Calculated 308.8 MOS/KG (273-304)
[2019-08-18 03:58] LABS: Band Neutrophils 2 % (0-10); Lymphocytes 4 % (20-55); Segmented Neutrophils 89 % (50-85); Total Cells Counted 100
[2019-08-18 03:59] LABS: Anisocytosis 1+; Hypochromasia 1+; Platelet Estimate Normal
[2019-08-18 06:09] LABS: ABG Base Excess 9.3 MMOL/L (-2.5-2.5); ABG HCO3 33.1 MMOL/L (20-26); ABG PCO2 61.7 MM HG (35-48); ABG PH 7.379 (7.35-7.45); ABG TCO2 33.3 MMOL/L (23-27); Allen Test Positive; Pt O2 Delivery Device Ventilator
[2019-08-18] MEDS: INSULIN GLARGINE 100 UNIT/ML SUBCUT SCH (09:31)
[2019-08-18] MEDS: amLODIPine 10 MG TABLET PO SCH (09:32)
[2019-08-18] MEDS: ATORVASTATIN 10 MG TABLET PO SCH (09:33)
[2019-08-18] MEDS: FLUCONAZOLE INJ 400 MG in PREMIX 1 EACH IV SCH (09:34)
[2019-08-18] MEDS: MULTIVITAMIN LIQUID (CENTRUM) 60 ML BOTTLE PO SCH (09:35)
[2019-08-18] MEDS: FUROSEMIDE 40 MG/4 ML VIAL IV SCH (09:36)
[2019-08-18] MEDS: PANTOPRAZOLE 40 MG VIAL IV SCH (09:38)
[2019-08-18] MEDS ORDERED: VANCOMYCIN INJ 1,500 MG in SODIUM CHLORIDE 0.9% 500 ML IV PRN (09:42)
[2019-08-18] MEDS ORDERED: VANCOMYCIN INJ 1,500 MG in SODIUM CHLORIDE 0.9% 500 ML IV ONE (10:30)
[2019-08-18] MEDS: ENOXAPARIN 40 MG/0.4 ML SYRINGE SUBCUT SCH (19:18)
[2019-08-18] MEDS: NORTRIPTYLINE 25 MG CAPSULE PO SCH (20:54)
[2019-08-18] MEDS: DULoxetine 30 MG CAPSULE PO SCH (20:54)
[2019-08-19] MEDS: ALBUTEROL/IPRATROPIUM 3 ML NEB RESP TX SCH ×7 (00:05→23:56)
[2019-08-19 03:29] LABS: ABG Base Excess 12.2 MMOL/L (-2.5-2.5); ABG Oxygen Saturation 99.4 % (95-100); ABG PCO2 62.4 MM HG (35-48); ABG PH 7.408 (7.35-7.45); ABG TCO2 35.8 MMOL/L (23-27)
[2019-08-19 04:30] LABS: Basophils % 0.2 % (0.0-0.8); Hematocrit 31.5 VOL% (35.7-47.0); Hemoglobin 9.6 GM/DL (12.0-16.0); Immature Granulocytes % 1.3 %; Immature Granulocytes Absolute 0.24 #; Lymphocytes # 0.6 10*3/uL (1.4-4.0); Mean Corpuscular HGB Conc 30.5 GM/DL (32-36); Mean Corpuscular Volume 88.5 FL (87-102); Mean Platelet Volume 10.8 FL (9.6-12.0); Monocytes % 8.6 % (1.7-12.7); Neutrophils % 86.9 % (38.7-73.9); Platelet Count 198 T/CUMM (130-400); Red Blood Count 3.56 MC/CUMM (3.8-5.5); Red Cell Distribution Width 15.4 % (9.3-17.3); White Blood Count 18.9 T/CUMM (4-12)
[2019-08-19 04:42] LABS: Osmolality,Calculated 310.7 MOS/KG (273-304)
[2019-08-19 04:51] LABS: Hypochromasia 1+; Lymphocytes 4 % (20-55); Platelet Estimate Adequate; Segmented Neutrophils 90 % (50-85); Total Cells Counted 100
[2019-08-19] MEDS: SODIUM CHLORIDE 0.45% 1,000 ML IV SCH ×2 (05:06→18:28)
[2019-08-19] MEDS: LORazepam 1 MG TABLET PO SCH ×3 (05:06→17:34)
[2019-08-19] MEDS: methylPREDNISolone SOD SUC 40 MG/1 ML VIAL IV SCH ×4 (05:06→23:30)
[2019-08-19] MEDS: INSULIN LISPRO 100 UNIT/ML SUBCUT SCH ×4 (05:09→23:55)
[2019-08-19] MEDS: ATORVASTATIN 10 MG TABLET PO SCH (10:18)
[2019-08-19] MEDS: amLODIPine 10 MG TABLET PO SCH (10:18)
[2019-08-19] MEDS: FUROSEMIDE 40 MG/4 ML VIAL IV SCH (10:19)
[2019-08-19] MEDS: INSULIN GLARGINE 100 UNIT/ML SUBCUT SCH ×2 (10:22→21:13)
[2019-08-19] MEDS: PANTOPRAZOLE 40 MG VIAL IV SCH (10:26)
[2019-08-19] MEDS: FLUCONAZOLE INJ 400 MG in PREMIX 1 EACH IV SCH (10:32)
[2019-08-19] MEDS: MULTIVITAMIN LIQUID (CENTRUM) 60 ML BOTTLE PO SCH (10:52)
[2019-08-19] MEDS ORDERED: INSULIN GLARGINE 100 UNIT/ML SUBCUT ONE (11:42)
[2019-08-19] MEDS: VANCOMYCIN INJ 1,500 MG in SODIUM CHLORIDE 0.9% 500 ML IV SCH (11:55)
[2019-08-19] MEDS ORDERED: LORazepam 1 MG TABLET PO PRN (18:18)
[2019-08-19] MEDS: ENOXAPARIN 40 MG/0.4 ML SYRINGE SUBCUT SCH (21:13)
[2019-08-19] MEDS: DULoxetine 30 MG CAPSULE PO SCH (21:13)
[2019-08-19] MEDS: NORTRIPTYLINE 25 MG CAPSULE PO SCH (21:14)
[2019-08-20] MEDS: ALBUTEROL/IPRATROPIUM 3 ML NEB RESP TX SCH ×6 (02:41→22:57)
[2019-08-20 03:34] LABS: Basophils % 0.1 % (0.0-0.8); Hematocrit 31.2 VOL% (35.7-47.0); Hemoglobin 9.3 GM/DL (12.0-16.0); Immature Granulocytes % 1.4 %; Immature Granulocytes Absolute 0.29 #; Lymphocytes # 0.6 10*3/uL (1.4-4.0); Mean Corpuscular HGB Conc 29.8 GM/DL (32-36); Mean Corpuscular Volume 89.1 FL (87-102); Mean Platelet Volume 11.6 FL (9.6-12.0); Monocytes % 7.7 % (1.7-12.7); Neutrophils % 87.8 % (38.7-73.9); Platelet Count 155 T/CUMM (130-400); Red Cell Distribution Width 15.6 % (9.3-17.3); White Blood Count 20.1 T/CUMM (4-12)
[2019-08-20 03:53] LABS: Calcium 8.2 MG/DL (8.5-10.1); Osmolality,Calculated 305.8 MOS/KG (273-304)
[2019-08-20 03:54] LABS: ABG Base Excess 15.5 MMOL/L (-2.5-2.5); ABG HCO3 41.5 MMOL/L (20-26); ABG Oxygen Saturation 97.7 % (95-100); ABG PCO2 60.1 MM HG (35-48); ABG PH 7.457 (7.35-7.45); ABG PO2 100.4 MM HG (80-95); ABG TCO2 43.3 MMOL/L (23-27); Allen Test Positive; Pt O2 Delivery Device Ventilator
[2019-08-20 04:03] LABS: Lymphocytes 4 % (20-55); Segmented Neutrophils 89 % (50-85); Total Cells Counted 100
[2019-08-20 04:04] LABS: Platelet Estimate Adequate
[2019-08-20 04:18] LABS: Anisocytosis 1+; Hypochromasia 2+; Macrocytosis 1+; Target Cells 1+
[2019-08-20] MEDS: methylPREDNISolone SOD SUC 40 MG/1 ML VIAL IV SCH ×4 (04:18→22:07)
[2019-08-20 04:56] VITALS: BP 149/72
[2019-08-20] MEDS: INSULIN LISPRO 100 UNIT/ML SUBCUT SCH ×4 (05:33→20:00)
[2019-08-20] MEDS: SODIUM CHLORIDE 0.45% 1,000 ML IV SCH ×2 (08:53→21:58)
[2019-08-20] MEDS: MULTIVITAMIN LIQUID (CENTRUM) 60 ML BOTTLE PO SCH (08:53)
[2019-08-20] MEDS: FLUCONAZOLE INJ 400 MG in PREMIX 1 EACH IV SCH (08:54)
[2019-08-20] MEDS: amLODIPine 10 MG TABLET PO SCH (08:54)
[2019-08-20] MEDS: ATORVASTATIN 10 MG TABLET PO SCH (08:54)
[2019-08-20] MEDS: FUROSEMIDE 40 MG/4 ML VIAL IV SCH (08:54)
[2019-08-20] MEDS: PANTOPRAZOLE 40 MG VIAL IV SCH (08:54)
[2019-08-20] MEDS: VANCOMYCIN INJ 1,500 MG in SODIUM CHLORIDE 0.9% 500 ML IV SCH (12:38)
[2019-08-20] MEDS: ENOXAPARIN 40 MG/0.4 ML SYRINGE SUBCUT SCH (20:01)
[2019-08-20] MEDS: INSULIN GLARGINE 100 UNIT/ML SUBCUT SCH (21:56)
[2019-08-20] MEDS: NORTRIPTYLINE 25 MG CAPSULE PO SCH (21:57)
[2019-08-20] MEDS: DULoxetine 30 MG CAPSULE PO SCH (21:57)
[2019-08-21] MEDS: INSULIN LISPRO 100 UNIT/ML SUBCUT SCH ×8 (00:35→23:23)
[2019-08-21] MEDS: MORPHINE 4 MG/1 ML VIAL IV PRN ×2 (01:11→16:49)
[2019-08-21] MEDS: ALBUTEROL/IPRATROPIUM 3 ML NEB RESP TX SCH ×5 (02:40→19:05)
[2019-08-21 03:58] LABS: ABG Base Excess 12.8 MMOL/L (-2.5-2.5); ABG HCO3 38.4 MMOL/L (20-26); ABG Oxygen Saturation 97.7 % (95-100); ABG PCO2 55.4 MM HG (35-48); ABG PH 7.459 (7.35-7.45); ABG PO2 107.2 MM HG (80-95); ABG TCO2 40.1 MMOL/L (23-27); Allen Test Positive; Pt O2 Delivery Device Ventilator
[2019-08-21] MEDS: methylPREDNISolone SOD SUC 40 MG/1 ML VIAL IV SCH ×4 (04:35→23:22)
[2019-08-21 05:21] LABS: Basophils % 0.2 % (0.0-0.8); Hemoglobin 9.1 GM/DL (12.0-16.0); Immature Granulocytes % 1.8 %; Immature Granulocytes Absolute 0.26 #; Lymphocytes # 0.5 10*3/uL (1.4-4.0); Lymphocytes % 3.6 % (21.3-54.2); Mean Corpuscular HGB Conc 30.3 GM/DL (32-36); Mean Corpuscular Volume 89.3 FL (87-102); Mean Platelet Volume 12.1 FL (9.6-12.0); Neutrophils % 88.4 % (38.7-73.9); Platelet Count 142 T/CUMM (130-400); Red Blood Count 3.36 MC/CUMM (3.8-5.5); Red Cell Distribution Width 15.2 % (9.3-17.3); White Blood Count 14.4 T/CUMM (4-12)
[2019-08-21 05:49] LABS: Hypochromasia 1+; Lymphocytes 4 % (20-55); Microcytosis Slight; Segmented Neutrophils 91 % (50-85); Total Cells Counted 100
[2019-08-21 05:50] LABS: Platelet Estimate Adequate
[2019-08-21 05:51] LABS: Calcium 7.9 MG/DL (8.5-10.1); Osmolality,Calculated 300.1 MOS/KG (273-304)
[2019-08-21 05:55] LABS: Prealbumin 24.3 MG/DL (20-40)
[2019-08-21] MEDS: FLUCONAZOLE INJ 400 MG in PREMIX 1 EACH IV SCH (08:30)
[2019-08-21] MEDS ORDERED: INSULIN LISPRO 100 UNIT/ML SUBCUT SCH (08:31)
[2019-08-21] MEDS: PANTOPRAZOLE 40 MG VIAL IV SCH (09:35)
[2019-08-21] MEDS: FUROSEMIDE 40 MG/4 ML VIAL IV SCH (09:36)
[2019-08-21] MEDS: ATORVASTATIN 10 MG TABLET PO SCH (09:37)
[2019-08-21] MEDS: MULTIVITAMIN LIQUID (CENTRUM) 60 ML BOTTLE PO SCH (09:37)
[2019-08-21] MEDS: amLODIPine 10 MG TABLET PO SCH (09:37)
[2019-08-21] MEDS: SODIUM CHLORIDE 0.45% 1,000 ML IV SCH ×2 (10:53→23:24)
[2019-08-21] MEDS ORDERED: propofoL 200 MG/20 ML VIAL IV ONE (12:20)
[2019-08-21] MEDS ORDERED: ROCURONIUM 100 MG/10 ML VIAL IV ONE (12:21)
[2019-08-21] MEDS: INSULIN GLARGINE 100 UNIT/ML SUBCUT SCH (20:07)
[2019-08-21] MEDS: NORTRIPTYLINE 25 MG CAPSULE PO SCH (20:11)
[2019-08-21] MEDS: DULoxetine 30 MG CAPSULE PO SCH (20:11)
[2019-08-21] MEDS: ENOXAPARIN 40 MG/0.4 ML SYRINGE SUBCUT SCH (20:11)
[2019-08-22] MEDS: ALBUTEROL/IPRATROPIUM 3 ML NEB RESP TX SCH ×5 (00:19→14:53)
[2019-08-22] MEDS: INSULIN LISPRO 100 UNIT/ML SUBCUT SCH ×3 (03:36→12:49)
[2019-08-22] MEDS: methylPREDNISolone SOD SUC 40 MG/1 ML VIAL IV SCH ×2 (03:37→09:36)
[2019-08-22 03:57] LABS: ABG Base Excess 6.5 MMOL/L (-2.5-2.5); ABG HCO3 30.3 MMOL/L (20-26); ABG Oxygen Saturation 98.7 % (95-100); ABG PCO2 54.8 MM HG (35-48); ABG PH 7.387 (7.35-7.45); ABG TCO2 29.7 MMOL/L (23-27)
[2019-08-22 04:31] LABS: Basophils % 0.1 % (0.0-0.8); Hematocrit 31.7 VOL% (35.7-47.0); Hemoglobin 9.6 GM/DL (12.0-16.0); Immature Granulocytes % 1.2 %; Immature Granulocytes Absolute 0.15 #; Lymphocytes # 0.3 10*3/uL (1.4-4.0); Lymphocytes % 2.5 % (21.3-54.2); Mean Corpuscular HGB Conc 30.3 GM/DL (32-36); Mean Corpuscular Volume 87.8 FL (87-102); Mean Platelet Volume 12.5 FL (9.6-12.0); Monocytes % 4.5 % (1.7-12.7); Neutrophils % 91.7 % (38.7-73.9); Platelet Count 126 T/CUMM (130-400); Red Blood Count 3.61 MC/CUMM (3.8-5.5)
[2019-08-22 04:51] LABS: Calcium 7.8 MG/DL (8.5-10.1); Osmolality,Calculated 290.5 MOS/KG (273-304)
[2019-08-22 05:15] LABS: Segmented Neutrophils 96 % (50-85); Total Cells Counted 100
[2019-08-22 05:16] LABS: Hypochromasia 1+; Microcytosis Slight; Platelet Estimate Normal
[2019-08-22] MEDS: POTASSIUM CHLORIDE 20 MEQ TABLET PO PRN ×2 (06:34→09:28)
[2019-08-22] MEDS: FUROSEMIDE 40 MG/4 ML VIAL IV SCH (09:25)
[2019-08-22] MEDS: MULTIVITAMIN LIQUID (CENTRUM) 60 ML BOTTLE PO SCH (09:25)
[2019-08-22] MEDS: FLUCONAZOLE INJ 400 MG in PREMIX 1 EACH IV SCH (09:25)
[2019-08-22] MEDS: ATORVASTATIN 10 MG TABLET PO SCH (09:26)
[2019-08-22] MEDS: amLODIPine 10 MG TABLET PO SCH (09:26)
[2019-08-22] MEDS: PANTOPRAZOLE 40 MG VIAL IV SCH (09:26)
[2019-08-22] MEDS: MORPHINE 4 MG/1 ML VIAL IV PRN (12:54)
== END 2019-08-22 15:50 | DRG 207 ==
LOC: N.ICU 16:20 → SUATTDRO 16:20
PROVIDERS: ADMIT Internal Medicine; ATTEND Internal Medicine